=== PATIENT | male | born 1955 | race Caucasian/White ===

== ENCOUNTER 2017-02-02 19:14 | Inpatient (IN) | payer OTHER ==
--- NOTE | ~2017-02-02 | CR72 ---
[facility] A Service of [facility] RADIOLOGY TEXT RESULTS PATIENT: RENAY BEE LOCATION: B 555-01 : 57 UNIT #: [id number] AGE: [address]: Kendrick Kim MD SEX: M ORDER DR: [id number] [facility] [address]. [place], [place] [address] [id number] I MR#: [id number] #: [id number] NAME: RENAY BEE : 1955 SEX: M STUDY DATE/TIME: 02/02/2017 19:52 UNIT: [facility] ROOM: [facility] STUDY DESCRIPTION: CR Chest Single View Portable Attending Physician: Kendrick Kim M.D. Ordering Physician: Lencho San M.D. Primary Care Physician: Primary Care Physician No MEDICAL IMAGING REPORT This report is preliminary unless electronic signature is present EXAM Chest, portable; 02/02/2017, 1952 hours. CLINICAL HISTORY 61-year-old man complaining of chills, fever, cough and congestion since this morning. COMPARISON None. FINDINGS Single upright portable view demonstrates heart size at the upper limits of normal with a mildly tortuous aorta. There is mild pulmonary venous distension. There is patchy density at the right lung base which could represent atelectasis or small focus of pneumonia. IMPRESSION There is mild cardiomegaly and a tortuous aorta. There is mild pulmonary venous distension without definite edema. There is mild patchy density at the right lung base which could represent atelectasis or a small focus of pneumonia. Consider followup two-view chest film to reassess the right lung base when possible. STAT * RESULT Dictated by... Belkis Bess M.D. THIS IS AN ELECTRONICALLY VERIFIED REPORT Belkis Bess M.D. at 02/04/2017 9:[address] [facility] A Service of [facility] RADIOLOGY TEXT RESULTS PATIENT: RENAY BEE LOCATION: C5B 555-01 : 57 UNIT #: [id number] AGE: [address]: Kendrick Kim MD SEX: M ORDER DR: BETHANY/merritt TD: 02/02/2017 20:10 JOB #: [id number] MEDICAL IMAGING REPORT Page 1 of 1 COPY
--- NOTE | ~2017-02-02 | EKG ---
PATIENT: RENAY BEE UNIT #: [id number] Ventricular Rate: 119 BPM Atrial Rate: 119 BPM P-R Interval: 160 ms QRS Duration: 92 ms Q-T Interval: 306 ms QTC Calculation(Bezet): 430 ms P [place]: 57 degrees Calculated R [place]: -16 degrees Calculated T [place]: 62 degrees Diagnosis Line: Sinus tachycardia Diagnosis Line: Nonspecific ST abnormality Diagnosis Line: Abnormal ECG Diagnosis Line: No previous ECGs available Diagnosis Line: Confirmed by ROMAN BAKER MD ([id number]) on Diagnosis Line: 02/03/2017 10:08:06 AM INTERPRETING MD: MARI
--- NOTE | ~2017-02-02 | EKG ---
PATIENT: RENAY BEE UNIT #: [id number] Ventricular Rate: 71 BPM Atrial Rate: 71 BPM P-R Interval: 172 ms QRS Duration: 98 ms Q-T Interval: 366 ms QTC Calculation(Bezet): 397 ms P [place]: 82 degrees Calculated T [place]: 111 degrees Diagnosis Line: Normal sinus rhythm Diagnosis Line: Nonspecific T wave abnormality Diagnosis Line: Abnormal ECG Diagnosis Line: When compared with ECG of 02-FEB-2017 19:42, Diagnosis Line: Vent. rate has decreased BY 48 BPM Diagnosis Line: Confirmed by PERRY BARRIGA MD ([id number]) on Diagnosis Line: 02/04/2017 5:17:18 PM INTERPRETING MD: CHIQUITA
--- NOTE | ~2017-02-02 | BMI ---
[facility] Nutrition Therapy DATE: 02/04/17 Patient: RENAY BEE Physician: JOSEPH Address: [address] [place] [address] Room/Bed: [address] [place] [address], Zip: [place] [id number] Admit Date: 02/03/17 Date of : [birth year] Height: 6 0 Weight: 353 160.5 HIGH BMI NOTE: DX: 61 Y.O. MALE ADMITTED FOR UTI, PNA ANTHROPOMETRICS: 6'0", WT: 310# (141 KG), BMI: 42.0 DIET: REGULAR RECOMMENDATIONS: 1. RECOMMEND TO CHANGE CURRENT DIET ORDER TO HH + CC DIET TO PROMOTE GRADUAL WEIGHT LOSS TOWARDS HEALTHY BMI (19.0-25.0) OR +/-10%IBW RD WILL F/U PER PROTOCOL Respectfully, CRISTIANE MALCOLM MS, RD, LD [facility] cc: client file
--- NOTE | ~2017-02-02 | HP ---
Unit #: [id number] #: [id number] Patient: RENAY BEE [id number] [address] [place], [place] [address] [id number] I MR#: [id number] NAME: RENAY BEE ROOM: 555 Age: 61 Sex: M Admission Date: 02/03/2017 : 1955 Attending Physician: Kendrick Kim M.D. Primary Care Physician: No Primary Care Physician HISTORY AND PHYSICAL REASON FOR ADMISSION Myalgias, fever at home, intractable nausea and vomiting, community-acquired pneumonia. HISTORY OF PRESENT ILLNESS The patient is a 61-year-old male who doesn't really follow with any particular physician or primary care in the past. Has seen numerous physicians at [place], [place] to where he is originally from. 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 While staying overnight, he began developing nausea, vomiting as well as difficulty with breathing and diffuse myalgias, increased fever and, thus, presented to the hospital for further evaluation. He tells me recently he has been otherwise feeling well. He denies any alcohol or tobacco abuse. He states he usually does not have any symptoms of dyspnea, chest pain, fevers or chills at home. He usually works from Saturday through Saturday. He is home in [place] over the weekends only. PAST MEDICAL HISTORY 1. Hypertension. 2. Hypothyroidism. 3. Bilateral knee osteoarthritis. 4. Hypogonadism, currently on testosterone injections. PAST SURGICAL HISTORY Laparoscopic arthropathy of bilateral knees. HOME MEDICATIONS 1. Lisinopril. 2. Mobic. 3. Levothyroxine. 4. Testosterone injection. ALLERGIES No known drug allergies. REVIEW OF SYSTEMS Please see HPI. Twelve point otherwise negative except for those positives noted in the HPI. FAMILY HISTORY Reviewed and noncontributory or non-pertinent. SOCIAL HISTORY Unit #: [id number] #: [id number] Patient: RENAY BEE Negative alcohol, negative tobacco, negative illicit drug use per patient. PHYSICAL EXAMINATION VITAL SIGNS: Temperature on admission 100.5, pulse 124, respiratory rate 20, blood pressure 132/73. GENERAL APPEARANCE: The patient is an obese 61-year-old male lying comfortably, in no acute distress. HEAD EXAM: Atraumatic, normocephalic. EAR EXAM: Tympanic membranes do not reveal any erythema or injection. NECK EXAM: Supple. CVS: S1, S2. Tachycardic without murmur. RESPIRATORY EXAM: Prolonged expiration noted. No rhonchi noted. GI/ABDOMEN: Distention noted. Nontender. EXTREMITIES: Lower extremity exam - no evidence of any lower extremity edema. No calf tenderness. NEUROLOGICAL EXAM: The patient is A and O x3. No evidence of any focal nerve deficits. PSYCHIATRIC EXAM: The patient demonstrates normal mood and affect. ER COURSE The patient received in total 3 L of normal saline, Rocephin, Zithromax as well as Tylenol. He underwent chest x-ray which did reveal questionable infiltrate. Laboratory studies on admission show CBC showing white count of 14.5, hemoglobin 13.6, lactic acid level 2.4. Initial cardiac enzymes negative. Urinalysis showing 2+ leukocyte esterase, positive bile, 25-50 WBCs, 4+ bacteria. CPK level at 310. Influenzae swab negative. Chest x-ray showing aforementioned infiltrate. BMP showing creatinine of 1.6. INITIAL IMPRESSION 1. Community-acquired pneumonia. 2. Intractable nausea and vomiting. 3. Diffuse myalgias. 4. Mild rhabdomyolysis. 5. Urinary tract infection. 6. Acute kidney injury with unclear baseline kidney function. 7. Leukocytosis. 8. Morbid obesity. 9. History of hypertension. 10. Hypothyroidism. 11. Hypogonadism. 12. Chronic osteoarthritis. 13. Morbid obesity. PLAN Admission telemetry floor. Symptom management. IV antibiotics for community-acquired pneumonia. Urine cultures, blood culture. Clear diet transitioning into regular. Await laboratory studies. Mild elevation of lactic acid level noted. Check 2D echo. Routine labs in a.m. including TSH. DC Meloxicam as well as lisinopril for now in regards to elevated creatinine. Plans have been discussed with patient in detail. He wishes to be Full Code. Further hospital course to follow. Dictated by Unit #: [id number] #: [id number] Patient: RENAY BEE Manny Garduno/andres TD: 02/03/2017 13:45 JOB #: [id number] HISTORY AND PHYSICAL Page 1 of 1 X Kendrick Kim MD HISTORY AND PHYSICAL
--- NOTE | ~2017-02-02 | CT16 ---
[facility] A Service of [facility] & [facility] RADIOLOGY TEXT RESULTS PATIENT: RENAY BEE LOCATION: B 555-01 : 57 UNIT #: [id number] AGE: [address]: Kendrick Kim MD SEX: M ORDER DR: [id number] [facility] [address] [place], [place] [address] [id number] I MR#: [id number] Acc #: [id number] NAME: RENAY BEE : 1955 SEX: M STUDY DATE/TIME: 02/04/2017 1243 UNIT: [facility] ROOM: [facility] STUDY DESCRIPTION: CT Angio Chest for PE Attending Physician: Kendrick Kim M.D. Ordering Physician: Brayan Brewer M.D. Primary Care Physician: No Primary Care Physician MEDICAL IMAGING REPORT This report is preliminary unless electronic signature is present EXAM CT angiogram of the chest with PE protocol 02/04/2017 1243 hours HISTORY Patient with shortness of air since 02/02/2017 with elevated D-dimer at 1375. Evaluate for pulmonary embolism. TECHNIQUE Dynamic helical CT images were obtained from the thoracic inlet through the adrenal glands. 3-D sagittal and coronal reconstructions were performed. Contrast was Isovue-370 100 mL IV. Total exam DLP 1115 mGy-cm. This CT exam was performed with one or more of the following radiation dose reduction techniques: automatic exposure control, adjustment of mA and/or kV according to patient size, and iterative reconstruction. FINDINGS Images are degraded by large body habitus. Images through the thoracic inlet demonstrate no thyroid mass or adenopathy. There is a benign lipoma in the anterior superior aspect of the pectoralis major muscle on the right measuring 4.2 cm which may be palpable. Images through the chest demonstrate diagnostic quality opacification of the pulmonary arteries which are normal in caliber. There are no filling defects to suggest the presence of pulmonary emboli. The aorta is not well opacified but is normal in caliber without dissection. Coronary calcifications are present. Cardiac chambers are mildly enlarged without pericardial fluid. There is a very small hiatal hernia. Lung window images demonstrate patchy ground-glass changes in the lingular segment of the left upper lobe, left lower lobe which could represent changes of edema or infection. There is very minimal parenchymal density in the right middle lobe medially. There is no basilar change or effusion. [facility]. [facility] A Service of [facility] RADIOLOGY TEXT RESULTS PATIENT: RENAY BEE LOCATION: [facility] 555-01 : 57 UNIT #: [id number] AGE: [address]: Kendrick Kim MD SEX: M ORDER DR: Limited views through the upper abdomen demonstrate fatty change in the liver. The adrenal glands are normal. The spleen and visualized portions of the pancreas are normal. Bone window images demonstrate degenerative changes in the mid thoracic spine with bridging osteophytes. There is no acute bone lesion or fracture. IMPRESSION 1. Exam is limited by large body habitus. 2. No pulmonary embolism is seen. The aorta is normal in caliber. 3. There is patchy ground-glass change in the lingular segment of the left upper lobe with minimal involvement left lower lobe and minimal ground-glass change in the medial inferior right upper lobe. These findings could be related to acute infection or residua from edema. There is no pleural effusion or pneumothorax. 4. Fatty change in the liver. Dictated by... Belkis Bess M.D. THIS IS AN ELECTRONICALLY VERIFIED REPORT Belkis Bess M.D. at 02/05/2017 9:29 AM [place] TD: 02/04/2017 17:10 JOB #: [id number] MEDICAL IMAGING REPORT Page 1 of 1 COPY
[2017-02-02 20:00] LABS: INFLUENZA A NEG (NEG); INFLUENZA B NEG (NEG)
[2017-02-02 20:21] LABS: BASOPHIL% 0.3 % (0-2.5); EOSINOPHIL% 0.2 % (0.0-7.0); HEMATOCRIT 42.7 % (38.0-50.0); HEMOGLOBIN 14.5 gm/dL (13.0-16.0); LYMPHOCYTE# 0.5 X10e3 (1.0-3.5); LYMPHOCYTE% 4.4 % (17.0-45.0); MEAN CELL VOLUME 93.3 FL (83-96); MEAN CORPUSCULAR HEMOGLOBIN 31.7 PG (28-34); MEAN CORPUSCULAR HGB CONC 33.9 g/dL (30-36); MEAN PLATELET VOLUME 9.8 FL (6.5-11.5); MONOCYTE# 0.6 X10e3 (0-1.0); MONOCYTE% 4.8 % (3.0-12.0); NEUTROPHIL# 10.9 X10e3 (1.5-7.1); NEUTROPHIL% 90.3 % (40-75); PLATELET COUNT 120 X10e3 (140-420); RED BLOOD COUNT 4.57 X10e (3.90-5.60)
[2017-02-02 20:28] LABS: DIFF IND NO
[2017-02-02 20:35] LABS: INR 1.1; PARTIAL THROMBOPLASTIN TIME 22.5 SECONDS (23.5-31.3); PROTHROMBIN TIME (PATIENT) 11.4 SECONDS (10.0-11.7)
[2017-02-02 20:42] LABS: ALBUMIN SERUM 4.2 g/dL (3.5-5.0); BILIRUBIN, DIRECT 0.3 mg/dL (0.0-0.2); BILIRUBIN,INDIRECT 1.6 mg/dL (0.0-0.9); BILIRUBIN,TOTAL 1.9 mg/dL (0.2-2.0); BUN/CREATININE RATIO 7.85; CREATININE SERUM 1.4 mg/dL (0.6-1.4); GLOM FILT RATE Estimated 54.2 mL/min (>60); POTASSIUM 3.5 mmol/L (3.5-5.1); PROTEIN TOTAL SERUM 7.4 g/dL (6.0-8.3)
[2017-02-02 21:11] LABS: POC - CKMB 2.1 ng/mL (0.0-7.9); POC - TROPONIN <0.05 ng/mL (<=0.05)
[2017-02-02 23:26] LABS: URINE SOURCE CLEAN CATCH
[2017-02-02 23:31] LABS: URINE APPEARANCE CLEAR; URINE BLOOD NEG (NEG); URINE COLOR DK YELLOW; URINE GLUCOSE NEG (NEG); URINE KETONE NEG (NEG); URINE LEUKOCYTE ESTERASE 2+ (NEG); URINE NITRATE NEG (NEG); URINE PROTEIN TRACE (NEG); URINE SPECIFIC GRAVITY 1.019 (1.003-1.035)
[2017-02-02 23:34] LABS: CULTURE INDICATED? YES; URBCS1 AUWI 0-2 /[HPF] (0-2); URINE BACTERIA AUWI 4+ (NEGATIVE); URINE SQUAMOUS EPITHELIAL CELL NONE SEEN /[HPF]; UWBCS1 AUWI 25-50 (0-5)
[2017-02-02 23:37] LABS: URINE BILIRUBIN POS (NEG)
[2017-02-03] MEDS ORDERED: LISINOPRIL PO (00:42)
[2017-02-03] MEDS ORDERED: MELOXICAM15 MG PO (00:42)
[2017-02-03] MEDS ORDERED: ARMOUR THYROID120 MG PO (00:44)
[2017-02-03] MEDS ORDERED: DEPO-TESTOT200 MG/ML IM (00:44)
[2017-02-03 06:52] LABS: BASOPHIL# 0.1 X10e3 (0-0.3); BASOPHIL% 0.5 % (0-2.5); EOSINOPHIL% 0.1 % (0.0-7.0); HEMATOCRIT 38.4 % (38.0-50.0); LYMPHOCYTE# 0.8 X10e3 (1.0-3.5); LYMPHOCYTE% 5.3 % (17.0-45.0); MEAN CELL VOLUME 94.7 FL (83-96); MEAN CORPUSCULAR HEMOGLOBIN 31.9 PG (28-34); MEAN CORPUSCULAR HGB CONC 33.7 g/dL (30-36); MEAN PLATELET VOLUME 9.3 FL (6.5-11.5); MONOCYTE# 0.6 X10e3 (0-1.0); MONOCYTE% 4.3 % (3.0-12.0); NEUTROPHIL# 13.1 X10e3 (1.5-7.1); NEUTROPHIL% 89.8 % (40-75); PLATELET COUNT 148 X10e3 (140-420); RED BLOOD COUNT 4.06 X10e (3.90-5.60); RED CELL DISTRIBUTION WIDTH 14.2 % (11.0-15.5); WHITE BLOOD COUNT 14.5 X10e3 (4.0-10.5)
[2017-02-03 06:54] LABS: DIFF IND NO
[2017-02-03 07:25] LABS: CALCIUM SERUM 8.2 mg/dL (8.4-10.2); CREATININE SERUM 1.6 mg/dL (0.6-1.4); GLOM FILT RATE Estimated 46.2 mL/min (>60)
[2017-02-03 15:21] LABS: %MB 1.5 % (0.0-4.0); MB 7.4 ng/ml
[2017-02-03 17:23] LABS: URINE APPEARANCE CLEAR; URINE BILIRUBIN NEG (NEG); URINE BLOOD NEG (NEG); URINE COLOR DK YELLOW; URINE GLUCOSE NEG (NEG); URINE KETONE NEG (NEG); URINE LEUKOCYTE ESTERASE 1+ (NEG); URINE NITRATE NEG (NEG); URINE PH 5.5 (5-8); URINE PROTEIN TRACE (NEG)
[2017-02-03 17:27] LABS: CULTURE INDICATED? YES; URBCS1 AUWI 0-2 /[HPF] (0-2); URINE BACTERIA AUWI NEG (NEGATIVE); URINE SQUAMOUS EPITHELIAL CELL NONE SEEN /[HPF]
[2017-02-03 20:20] LABS: %MB 1.5 % (0.0-4.0); MB 7.5 ng/ml
[2017-02-04 08:03] LABS: HEMATOCRIT 36.4 % (38.0-50.0); HEMOGLOBIN 12.2 gm/dL (13.0-16.0); MEAN CELL VOLUME 96.4 FL (83-96); MEAN CORPUSCULAR HEMOGLOBIN 32.3 PG (28-34); MEAN CORPUSCULAR HGB CONC 33.5 g/dL (30-36); MEAN PLATELET VOLUME 10.2 FL (6.5-11.5); RED BLOOD COUNT 3.78 X10e (3.90-5.60); RED CELL DISTRIBUTION WIDTH 14.3 % (11.0-15.5)
[2017-02-04 09:14] LABS: CREATININE SERUM 1.3 mg/dL (0.6-1.4); GLOM FILT RATE Estimated 59.3 mL/min (>60); MAGNESIUM 1.8 mg/dL (1.6-3.0); POTASSIUM 3.5 mmol/L (3.5-5.1)
[2017-02-04] MEDS ORDERED: OMNICEF300 M1 PO (15:58)
[2017-02-04] MEDS ORDERED: ZITHROMAX500 MG PO (15:58)
[2017-02-04] MEDS ORDERED: LASIX20 MG PO (15:59)
== END 2017-02-04 17:06 | disposition home or self-care (01) | DRG 194 ==
LOC: CED 19:14 → CEDOF 02-03 00:50 → CED 02-03 01:10 → CEDOF 02-03 01:10 → C5B 02-03 10:14 → CEDOF 02-03 10:14 → C5B 02-04 17:06
PROVIDERS: Family Medicine; Internal Medicine
PROC: B24BZZZ Ultrasonography of Heart with Aorta (ICD-10-PCS; 2017-02-03)
PROC: B32TYZZ Computerized Tomography (CT Scan) of Left Pulmonary Artery using Other Contrast (ICD-10-PCS; principal; 2017-02-04)
PROC: B32SYZZ Computerized Tomography (CT Scan) of Right Pulmonary Artery using Other Contrast (ICD-10-PCS; 2017-02-04)
DX: J18.9 Pneumonia, unspecified organism (principal); N39.0 Urinary tract infection, site not specified; N17.9 Acute kidney failure, unspecified; M62.82 Rhabdomyolysis; Z68.41 Body mass index [BMI] 40.0-44.9, adult; E66.01 Morbid (severe) obesity due to excess calories; R11.2 Nausea with vomiting, unspecified; E29.1 Testicular hypofunction; M17.0 Bilateral primary osteoarthritis of knee; E03.9 Hypothyroidism, unspecified; I10 Essential (primary) hypertension
CPT/HCPCS: 36415; 71010; 71275; 80048; 80076; 81003; 82550; 82553; 82607; 83036; 83605; 83735; 84443; 84484; 85025; 85027; 85379; 85610; 85730; 87040; 87086; 87088; 87186; 87804; 93005; 93306; 94640; 94760; 96360; 99285; C9113; J0456; J0696; J1650; J3420; Q9967